=== PATIENT | female | born 1990 | race Caucasian/White ===

== ENCOUNTER 2017-09-30 23:14 | Emergency (ER) | payer SELFPAY, OTHER ==
[2017-09-30] MEDS: IBUPROFEN 800 MG TABLET. PO (23:50)
== END 2017-10-01 02:04 | disposition home or self-care (01) ==
LOC: ER 23:14
DX: S39.012A Strain of muscle, fascia and tendon of lower back, initial encounter (principal); X50.9XXA Other and unspecified overexertion or strenuous movements or postures, initial encounter; Y93.89 Activity, other specified; Y99.8 Other external cause status; Y92.89 Other specified places as the place of occurrence of the external cause
CPT/HCPCS: 99283